=== PATIENT | male | born 1935 | race Caucasian/White ===

== ENCOUNTER 2016-10-20 14:00 | Inpatient (IN) | payer MEDICARE, BC ==
[~2016-10-20] VITALS: Ht 170.2 cm; Wt 64.8 kg
--- NOTE | ~2016-10-20 | OR ---
PATIENT'S NAME: MANAN SON [facility] AGE: 81 Y [address] ROOM: [place] [id number] [facility] ADMIT DATE: 10/27/2016 OR/Procedure Report DISCHARGE DATE: FAMILY PHYSICIAN: Burton Hart MD ATTENDING PHYSICIAN: MACK DUNAWAY SURGEON: Mack Dunaway MD [employer]PER[employer]: DATE OF PROCEDURE: 10/27/2016 PREOPERATIVE DIAGNOSIS: High-grade left internal carotid artery stenosis. POSTOPERATIVE DIAGNOSIS: High-grade left internal carotid artery stenosis. PROCEDURE: Left carotid endarterectomy with bovine pericardial patch. CATH LAB: Lynda Jaeger, nurse practitioner. She provided retraction as well as closure of the wound. ANESTHESIA: General. ESTIMATED BLOOD LOSS: 150 mL. OPERATIVE FINDINGS: Neurologically intact at the end of the case and near- occlusive lesion of the left ICA. DESCRIPTION OF PROCEDURE: The patient was brought to the operating room and placed supine on operating table, prepped and draped in a sterile manner. Preoperative time-out was performed. The patient received preoperative antibiotics. We made a standard incision along the anterior border of the sternocleidomastoid on the left. Transected the platysma, dissected out the internal jugular, identified the facial vein which was ligated and transected. We then dissected out the common, external, and the internal carotid arteries. We gave 5000 units of heparin. We clamped proximally and distally on all arteries, performed our back pressure, which showed an adequate pressure not requiring a shunt. We then made an arteriotomy from the common to the internal using 11 blade as well as Rendon scissors. We then removed the plaque in its entirety. We then did a standard bovine pericardial patch using two running 6-0 [place] sutures. We allowed backbleeding from all vessels before completing the anastomosis. Heparin was reversed with the use of protamine. Deep layers were closed with 2-0 and 3-0 Vicryl. Skin was closed with running 4-0 Monocryl. The patient tolerated the procedure well and awoken in the operating room, neurologically intact, transferred to recovery room and up to the floor. PATIENT'S NAME: MANAN SON [facility] AGE: 81 Y [address] ROOM: [place] [id number] LOCATION: [facility] ADMIT DATE: 10/27/2016 OR/Procedure Report DISCHARGE DATE: FAMILY PHYSICIAN: Burton Hart MD ATTENDING PHYSICIAN: MACK DUNAWAY MACK DUNAWAY MD FKM/modl /[id number] d: 10/27/16 2333 t: 11/02/16 1155, OPERATIVE SUMMARY
[2016-10-20] MEDS ORDERED: GLUCOPHAGE1000 MG PO (16:39)
[2016-10-20] MEDS ORDERED: LEVOTHROID(SYN75 MCG PO (16:39)
[2016-10-20] MEDS ORDERED: GLUCOTROL 5MG XL5 MG PO (16:40)
[2016-10-20] MEDS ORDERED: LIPITOR10 M1 PO (16:40)
[2016-10-20] MEDS ORDERED: COZAAR50 MG PO (16:40)
[2016-10-20] MEDS ORDERED: LASIX40 MG PO (16:41)
[2016-10-20] MEDS ORDERED: PRILOSEC20 MG PO (16:41)
[2016-10-20] MEDS ORDERED: NEURONTIN300 MG PO (16:42)
[2016-10-20] MEDS ORDERED: ZANAFLEX4 MG PO (16:42)
[2016-10-20] MEDS ORDERED: XALATAN2.5 ML OPHTH (16:44)
[2016-10-20] MEDS ORDERED: ALPHAGAN 05 ML/1 BOT OPHTH (16:45)
[2016-10-20] MEDS ORDERED: ALBUTEROL2.5 MG/31 INH (16:46)
[2016-10-20] MEDS ORDERED: ASPIRIN EC81 MG PO (16:46)
[2016-10-20] MEDS ORDERED: TAB-A-VITE1 EACH PO (16:46)
[2016-10-20] MEDS ORDERED: TYLENOL EXTRA500 MG PO (16:47)
[2016-10-20] MEDS ORDERED: STOOL SOFTENER100 MG PO (16:47)
[2016-10-20] MEDS ORDERED: TYLENOL PM EX-1 EACH PO (16:47)
[2016-10-27 06:10] LABS: BASOPHIL # 0.1 K/uL (0.0-0.2); BASOPHIL % 0.5 %; EOSINOPHIL # 0.8 K/uL (0.0-0.5); EOSINOPHIL % 8.8 %; HEMATOCRIT 40.5 % (33.0-50.0); HEMOGLOBIN 13.6 g/dL (11.0-16.0); IMMATURE GRANULOCYTE % 0.2 %; LYMPHOCYTE # 2.2 K/uL (0.8-4.0); LYMPHOCYTE % 23.8 %; MCH 29.8 pg (27.0-34.0); MCHC 33.6 gm/dL (32.0-36.5); MCV 88.6 fl (83.0-98.0); MONOCYTE # 0.7 K/uL (0.0-1.0); MONOCYTE % 7.9 %; MPV 8.6 fl (9.4-12.4); NEUTROPHIL # (ANC) 5.5 K/uL (1.4-9.0); NEUTROPHIL % 58.8 %; NRBC % 0 /100WBC (0-0.00); PLATELET COUNT 298 K/uL (150-450); RBC 4.57 M/uL (3.50-5.50); RDW-CV 14.5 % (11.9-14.6); WBC 9.4 K/uL (4.0-11.0)
[2016-10-27 06:26] LABS: CALCIUM 9.3 mg/dL (8.5-10.5); CREATININE 1.1 mg/dL (0.6-1.3); TOTAL BILIRUBIN 0.3 mg/dL (0.0-1.5)
--- NOTE | 2016-10-27 17:03 | NUR ---
Significant Event: ALERT & ORIENTED. SBP 150-200, GAVE ONE TIME DOSE OF [place] AND STARTED COREG. HR 80-90'S, AFEBRILE, TITRATED TO ROOM AIR. UP WITH 1 ASSIST, CANE FROM HOME, UNSTEADY. L)NECK DRESSING CDI. R)RADIAL ART LINE. L)AC WITH FLUIDS AT 75 ML/HR UNTIL 1130 THEN SL. FREQUENT VOIDS. ACCUCHECK ACHS Follow up: DC TO HOME TOMORROW?
--- NOTE | 2016-10-27 17:18 | NUR ---
Introduced self and CM role to Contreras and his son Sree who was at bedside. Explained to them that I had got a VM from Dr.Murphys MAICOL Medrano, re:dismissal concerns and I was here to address those with him. Contreras tells me that he lives at home in [place], alone and it is his goal to return there. "I was really thinking that this surgery was going to be a lot worse than what it was and now I think I will be fine to go home. I kind of got worked up over nothing to be honest." Let him know that this was fine and we could see about getting him some HHC to follow if that would make him feel better. He says that he will think about this as he isn't positive that he will be "home bound" like you need to be in order to have HHC come into help you out. Son Sree states that he will be in town until Monday evening at the latest and then he has to return back to his home for prior obligations that he has. Contreras says that he has [employer] at home and he also uses a cane or a FWW when he feels like it is needed. PCP is Dr.Tom Hart. He manages all of his own medications at baseline, uses AM/PM pill boxes to help him out. Tells me that he will continue to do this when he goes home. I let him know that I would come back by tomorrow to confirm that he was still ok with going home and that he didn't feel like HHC would be needed. He and son were fine with this. Sree says that he will take him back home when he is discharge and get him settled in before he leaves town. No other questions, needs or concerns at this time. Left my name on his whiteboard. CM to continue to follow and assist.
--- NOTE | 2016-10-28 00:02 | NUR ---
At 1900 SBP 190s-180s and patient C/O head ache. Received order from Dr. Burrell for Hydralizine PO for SPB >180 but not given this shift, BP gradually declined. [place] 1 tab given at 2000. At 2215 BP dropped to 90s/40s, MAP 60-65. Patient asymptomatic. Gave 500ml NS bolus at 2235 per Lynda. BP now 110/50 (70). R) radial art line. IVs to L) AC running D5 1/2 @ 70ml/hr and R) forearm. Patient resting in chair. A&Ox3. Room Air. Up 1A. Accu ACHS.
[2016-10-28 04:50] LABS: ANION GAP 11.4 (10.0-19.0); CALCIUM 8.5 mg/dL (8.5-10.5); POTASSIUM 4.4 mMol/L (3.7-5.1)
--- NOTE | 2016-10-28 05:05 | NUR ---
Significant Event:A/Ox3. VSS on RA. After NS bolus SBP 100-120s. R)artline discontinued at 0400, lalo christianson and cassidy. Tranfers SBA with cane. Follow up:Plan is home today.
[2016-10-28 08:56] LABS: BASOPHIL % 0.1 %; EOSINOPHIL # 0.3 K/uL (0.0-0.5); EOSINOPHIL % 2.9 %; HEMATOCRIT 32.5 % (33.0-50.0); HEMOGLOBIN 10.5 g/dL (11.0-16.0); IMMATURE GRANULOCYTE % 0.3 %; LYMPHOCYTE # 1.6 K/uL (0.8-4.0); LYMPHOCYTE % 18.3 %; MCH 29.3 pg (27.0-34.0); MCHC 32.3 gm/dL (32.0-36.5); MCV 90.8 fl (83.0-98.0); MONOCYTE # 0.6 K/uL (0.0-1.0); MONOCYTE % 6.5 %; MPV 8.3 fl (9.4-12.4); NEUTROPHIL # (ANC) 6.4 K/uL (1.4-9.0); NEUTROPHIL % 71.9 %; NRBC % 0 /100WBC (0-0.00); RBC 3.58 M/uL (3.50-5.50); RDW-CV 14.9 % (11.9-14.6); WBC 8.9 K/uL (4.0-11.0)
[2016-10-28 09:00] LABS: PLATELET COUNT 234 K/uL (150-450)
--- NOTE | 2016-10-28 12:21 | NUR ---
Social visit with Contreras and his son Sree who was at bedside. Contreras tells me that his night went great and he is really hoping to get to go home today. He has no concerns about returning there. Denies any needs for HHC when he goes. Son will transport him home. No other questions, needs or concerns. Plan home. CM to continue to follow and assist.
[2016-10-28] MEDS ORDERED: NORCO 5-325 TA1 EACH PO (13:34)
[2016-10-28] MEDS ORDERED: TOPROL XL25 MG PO (13:37)
== END 2016-10-28 14:05 | disposition disaster alternative care site (69) | DRG 39 ==
LOC: GPCU 10-27 05:20
PROVIDERS: ADMIT Surgery Vascular Surgery
PROC: 03UL0KZ Supplement Left Internal Carotid Artery with Nonautologous Tissue Substitute, Open Approach (ICD-10-PCS; principal; 2016-10-27)
PROC: 03CL0ZZ Extirpation of Matter from Left Internal Carotid Artery, Open Approach (ICD-10-PCS; principal; 2016-10-27)
DX: I65.22 Occlusion and stenosis of left carotid artery (principal); E11.40 Type 2 diabetes mellitus with diabetic neuropathy, unspecified; I10 Essential (primary) hypertension; E78.5 Hyperlipidemia, unspecified; E03.9 Hypothyroidism, unspecified; K21.9 Gastro-esophageal reflux disease without esophagitis; Z79.84 Long term (current) use of oral hypoglycemic drugs; Z79.82 Long term (current) use of aspirin; Z88.1 Allergy status to other antibiotic agents; Z88.2 Allergy status to sulfonamides; Z88.8 Allergy status to other drugs, medicaments and biological substances; H35.30 Unspecified macular degeneration; M81.0 Age-related osteoporosis without current pathological fracture; H91.90 Unspecified hearing loss, unspecified ear; Z85.46 Personal history of malignant neoplasm of prostate
CPT/HCPCS: J0360; J0610; J0690; J1100; J1644; J2001; J2405; J2720; J3480; J7030; J7040; P9047